=== PATIENT | female | born 1945 | race Hispanic/Latino ===

== ENCOUNTER 2018-07-17 10:03 | Observation (INO) | payer MEDICARE ==
[2018-07-17] MEDS ORDERED: Albuterol-Ipratrop 3 mg / 0.5 (3 ml) UD INH STA ×2 (10:59→11:00)
[2018-07-17] MEDS ORDERED: Albuterol-Ipratrop 3 mg / 0.5 (3 ml) UD ONE (11:20)
--- NOTE | 2018-07-17 11:20 | ED PDOC ---
HPI: Influenza Time Seen by Provider: 07/17/18 10:34 Chief Complaint: Cough, Cold, Congestion Past Medical History Vital Signs: Last Vital Signs Temp 98.2 F 07/17/18 10:07 Pulse 80 07/17/18 10:07 Resp 18 07/17/18 10:07 BP 159/68 H 07/17/18 10:07 Pulse Ox 96 07/17/18 10:07 - Medical History PMH: Asthma, HTN, Hypercholesterolemia - Surgical History Surgical History: Appendectomy - Allergies Allergies/Adverse Reactions: Allergies Allergy/AdvReac Type Severity Reaction Status Date / Time codeine Allergy ANAPHYLAXIS Verified 07/17/18 10:39 - ECG O2 Sat by Pulse Oximetry: 96 Disposition - Disposition
--- NOTE | 2018-07-17 11:23 | ED PDOC ---
HPI: SOB/CHF/COPD Time Seen by Provider: 07/17/18 10:34 Chief Complaint (Nursing): Cough, Cold, Congestion Chief Complaint (Provider): Cough, SOB History Per: Patient, Family (sisters and daughter at bedside) History/Exam Limitations: no limitations Onset/Duration Of Symptoms: Days (x1 week) Current Symptoms Are (Timing): Still Present Recently: Treated By A Physician (Dr Sanchez) Additional Complaint(s): Patient is a 73 year old female who presents to ED for evaluation of SOB and dry cough x1 week. Patient reports at onset last Monday (07/09/18), she saw Dr Sanchez and treated with a five day course of Levaquin, which she completed. Patient further reports that last week she was also seen by an urgent care and had a CXR done, which was reportedly unremarkable. Patient states that she has been using Robitussin, Promethazine syrup, and albuterol nebulizer with no relief of symptoms. She reports she saw Dr Sanchez again yesterday, who advised her to go to the ED however patient did not want to, therefore she was treated with outpatient Azithromycin, which patient started today. Patient notes that she also started taking steroids yesterday, her last dose was Prednisone 20mg PO this morning. Denies chest pain, fever, headache, dizziness, N/V/D, recent travel, sick contacts. Patient reports she was a former smoker and quit 20 years ago. PMD: Daniel Past Medical History Reviewed: Historical Data, Nursing Documentation, Vital Signs Vital Signs: Last Vital Signs Temp 98.2 F 07/17/18 10:07 Pulse 80 07/17/18 10:07 Resp 18 07/17/18 10:07 BP 159/68 H 07/17/18 10:07 Pulse Ox 96 07/17/18 10:07 - Medical History PMH: Asthma, COPD, HTN, Hypercholesterolemia, Hypothyroidism - Surgical History Surgical History: Appendectomy - Family History Family History: States: Unknown Family Hx - Social History Current smoker - smoking cessation education provided: No (Patient denies. ) Ex-Smoker (has not smoked in the last 12 months): Yes (quit 20 years ago per patient) Alcohol: None - Home Medications Home Medications: Ambulatory Orders Medication Instructions Recorded Albuterol Sulfate [Proair Hfa] 2 puff IH Q6 PRN 07/17/18 Azithromycin [Zithromax] 250 mg PO ASDIR 07/17/18 Levothyroxine [Synthroid] 100 mcg PO DAILY 07/17/18 RX: Albuterol 0.083% [Albuterol 3 ml IH Q4 PRN 07/17/18 0.083% Inhal Ping (2.5 mg/3 ml) UD] RX: Aspirin [Ecotrin] 81 mg PO DAILY 07/17/18 RX: Atenolol [Tenormin] 25 mg PO DAILY 07/17/18 RX: Losartan [Cozaar] 50 mg PO DAILY 07/17/18 RX: Promethazine [Phenergan Syrup] 5 ml PO Q6 PRN 07/17/18 RX: hydroCHLOROthiazide 25 mg PO DAILY 07/17/18 [Hydrodiuril] RX: predniSONE [predniSONE Tab] 20 mg PO DAILY 07/17/18 Simvastatin [Zocor] 40 mg PO HS 07/17/18 - Allergies Allergies/Adverse Reactions: Allergies Allergy/AdvReac Type Severity Reaction Status Date / Time codeine Allergy ANAPHYLAXIS Verified 07/17/18 10:39 Review of Systems ROS Statement: Except As Marked, All Systems Reviewed And Found Negative Constitutional: Negative for: Fever Cardiovascular: Negative for: Chest Pain, Palpitations Respiratory: Positive for: Cough, Shortness of Breath Gastrointestinal: Negative for: Nausea, Vomiting, Diarrhea Physical Exam - Reviewed Nursing Documentation Reviewed: Yes Vital Signs Reviewed: Yes - Physical Exam Appears: Positive for: Well, Non-toxic, No Acute Distress Head Exam: Positive for: ATRAUMATIC, NORMOCEPHALIC Skin: Positive for: Normal Color, Warm, Dry Eye Exam: Positive for: Normal appearance ENT: Positive for: Pharynx Is (clear, uvula midline), TM Is/Are (nonbulging, nonerythematous), Other (Mucus membranes moist. Airway patent, (-) stridor. ). Negative for: Sinus Pain/Drainage, Nasal Congestion, Pharyngeal Erythema, Tonsillar Exudate Neck: Positive for: Painless ROM, Supple Cardiovascular/Chest: Positive for: Regular Rate, Rhythm Respiratory: Positive for: Decreased Breath Sounds (bilaterally), Wheezing (scattered, faint wheezing to bilateral lower lung ulloa), Other (speaking in full sentences, respirations even and nonlabored. ). Negative for: Accessory Muscle Use, Respiratory Distress (or retractions) Extremity: Positive for: Normal ROM. Negative for: Deformity Neurologic/Psych: Positive for: Alert, Oriented (x3), Gait (steady in ED). Negative for: Aphasia, Facial Droop - Laboratory Results Result Diagrams: 07/17/18 11:50 07/17/18 11:50 - ECG O2 Sat by Pulse Oximetry: 96 (RA) Pulse Ox Interpretation: Normal Medical Decision Making Medical Decision Making: Clinical Impression: Cough, SOB Plan: IV access CBC CMP PT, PTT EKG Troponin BNP Duoneb x2 INH training project manager Consult Dr Sanchez [address] Sanchez, who states that the patient has been having this ongoing issue x1 month. Does not wish to repeat CXR as patient had one last week. Reports patient has a history of COPD and still smokes, which she denied to provider. Dr Sanchez states patient is to be admitted to observation on med/surg for 24 hours for COPD exacerbation. Recommends ABG. ABG ordered. EKG: NSR @ 68bpm (-) ST elevation, QTc [id number] Labs reviewed and grossly unremarkable. BNP and troponin WNL. Arrangements made for admission to obs on med/surg for COPD exacerbation. Disposition - Clinical Impression Clinical Impression: Cough in adult, COPD exacerbation, SOB (shortness of breath) - Patient ED Disposition Is Patient to be Admitted: Yes Discussed With .: Kenneth Sanchez Doctor Will See Patient In The: Hospital Counseled Patient/Family Regarding: Studies Performed, Diagnosis - Disposition Disposition Time: 12:15 Condition: STABLE - Pt Status Changed To: Hospital Disposition Of: Observation (med/surg) - POA Present On Arrival: None Results - Lab Results Lab Results: 07/17/18 07/17/18 07/17/18 11:55 11:50 11:50 WBC 7.8 RBC 4.68 Hgb 14.1 Hct 40.5 MCV 86.6 MCH 30.1 MCHC 34.7 RDW 12.8 Plt Count 313 MPV 8.3 Neut % (Auto) 89.2 H Lymph % (Auto) 8.0 L [place] % (Auto) 2.1 Eos % (Auto) 0.4 Baso % (Auto) 0.3 Neut # (Auto) 6.9 Lymph # (Auto) 0.6 L [place] # (Auto) 0.2 Eos # (Auto) 0.0 Baso # (Auto) 0.0 Neutrophils % (Manual) Pending Lymphocytes % (Manual) Pending Monocytes % (Manual) Pending Platelet Estimate Pending PT 11.8 INR 1.0 APTT 32.2 pCO2 37 pO2 160 H HCO3 27.5 ABG pH 7.47 H ABG Total CO2 28.0 ABG O2 Saturation 100.0 H ABG O2 Content 20.2 ABG Base Excess 3.3 H ABG Hemoglobin 14.6 ABG Carboxyhemoglobin 1.7 H POC ABG HHb (Measured) 0.0 ABG Methemoglobin 1.3 ABG O2 Capacity 20.2 Omar Test Yes A-a O2 Difference 136.0 Hgb O2 Saturation 97.1 FiO2 48.0 Sodium Potassium Chloride Carbon Dioxide Anion Gap BUN Creatinine Est GFR ( Amer) Est GFR (Non-Af Amer) Random Glucose Calcium Total Bilirubin AST ALT Alkaline Phosphatase Troponin I NT-Pro-B Natriuret Pep Total Protein Albumin Globulin Albumin/Globulin Ratio 07/17/18 11:50 WBC RBC Hgb Hct MCV MCH MCHC RDW Plt Count MPV Neut % (Auto) Lymph % (Auto) [place] % (Auto) Eos % (Auto) Baso % (Auto) Neut # (Auto) Lymph # (Auto) [place] # (Auto) Eos # (Auto) Baso # (Auto) Neutrophils % (Manual) Lymphocytes % (Manual) Monocytes % (Manual) Platelet Estimate PT INR APTT pCO2 pO2 HCO3 ABG pH ABG Total CO2 ABG O2 Saturation ABG O2 Content ABG Base Excess ABG Hemoglobin ABG Carboxyhemoglobin POC ABG HHb (Measured) ABG Methemoglobin ABG O2 Capacity Omar Test A-a O2 Difference Hgb O2 Saturation FiO2 Sodium 134 Potassium 3.6 Chloride 98 Carbon Dioxide 28 Anion Gap 12 BUN 12 Creatinine 0.6 L Est GFR ( Amer) > 60 Est GFR (Non-Af Amer) > 60 Random Glucose 139 H Calcium 9.2 Total Bilirubin 0.7 AST 22 ALT 23 Alkaline Phosphatase 69 Troponin I < 0.0120 NT-Pro-B Natriuret Pep 126 Total Protein 7.7 Albumin 3.9 Globulin 3.7 Albumin/Globulin Ratio 1.0
[2018-07-17 11:58] LABS: ABG ALLEN TEST YES; ARTERIAL BLOOD GAS HCO3 27.5 mmol/L (21-28); ARTERIAL BLOOD GAS HEMOGLOBIN 14.6 g/dL (11.7-17.4); ARTERIAL BLOOD GAS O2 CAPACITY 20.2 mL/dL (16-24); ARTERIAL BLOOD GAS O2 CONTENT 20.2 ML/dL (15-23); ARTERIAL BLOOD GAS PCO2 37 mm/Hg (35-45); ARTERIAL BLOOD GAS PH 7.47 (7.35-7.45); ARTERIAL BLOOD GAS PO2 160 mm/Hg (80-100)
[2018-07-17 12:03] LABS: BASO % 0.3 % (0.0-2.0); EOS % 0.4 % (0.0-4.0); HEMOGLOBIN 14.1 g/dL (12.0-16.0); LYMPH # 0.6 K/uL (1.0-4.3); MEAN CELL VOLUME 86.6 fl (81.0-99.0); MEAN CORPUSCULAR HEMOGLOBIN 30.1 pg (27.0-31.0); MEAN CORPUSCULAR HGB CONC 34.7 g/dL (33.0-37.0); MEAN PLATELET VOLUME 8.3 fl (7.2-11.7); MONO # 0.2 K/uL (0.0-0.8); MONO % 2.1 % (0.0-10.0); NEUT # 6.9 K/uL (1.8-7.0); NEUT % 89.2 % (50.0-75.0); PLATELET COUNT 313 K/uL (130-400); RBC 4.68 Mil/uL (3.80-5.20); RED CELL DISTRIBUTION WIDTH 12.8 % (11.5-14.5); WHITE BLOOD COUNT 7.8 K/uL (4.8-10.8)
[2018-07-17 12:13] LABS: PROTHROMBIN TIME 11.8 Seconds (9.8-13.1)
[2018-07-17 12:15] LABS: PARTIAL THROMBOPLASTIN TIME 32.2 Seconds (25.6-37.1)
[2018-07-17 12:19] LABS: ALBUMIN 3.9 g/dL (3.5-5.0); ALT/SGPT 23 U/L (9-52); AST/SGOT 22 U/L (14-36); BLOOD UREA NITROGEN 12 mg/dl (7-17); CALCIUM 9.2 mg/dL (8.4-10.2); GFR NON-AFRICAN AMERICAN > 60
[2018-07-17 12:31] LABS: B-TYPE NATRIURETIC PEPTIDE 126 pg/ml (0-900)
[2018-07-17 13:24] LABS: LYMPHOCYTE 5 % (20-50); MONOCYTE 1 % (0-10); NEUTROPHIL 94 % (42-75); PLATELET ESTIMATE NORMAL (NORMAL); TOTAL CELLS COUNTED 100
[2018-07-17] MEDS ORDERED: Promethazine 6.25 MG/5 ML CUP PO PRN (16:24)
[2018-07-17] MEDS ORDERED: Albuterol-Ipratrop 3 mg / 0.5 (3 ml) UD INH PRN (16:29)
[2018-07-17] MEDS ORDERED: methylPREDNISolone 40 MG in Sodium Chloride 0.9% 50 ML IVPB SCH (17:00)
[2018-07-17] MEDS: MethylPREDNISolone 40 mg Vial IVP SCH (17:42)
--- NOTE | 2018-07-17 18:58 | CARD ---
APPROVED REPORT Date of service: 07/17/2018 EKG Measurement Heart [id number] <Conclusion> Normal sinus rhythm ST & T wave abnormality, consider anterolateral ischemia Abnormal ECG
[2018-07-17] MEDS: Albuterol-Ipratrop 3 mg / 0.5 (3 ml) UD INH SCH (19:25)
[2018-07-18] MEDS: MethylPREDNISolone 40 mg Vial IVP SCH ×2 (00:06→08:54)
[2018-07-18] MEDS: Albuterol-Ipratrop 3 mg / 0.5 (3 ml) UD INH SCH ×2 (01:03→08:03)
[2018-07-18] MEDS ORDERED: Levothyroxine 100 MCG TAB PO SCH (09:00)
[2018-07-18 09:13] VITALS: BP 108/56; PULSE 82; RESP 20; TEMP 97.8; O2SAT 100
--- NOTE | 2018-07-18 10:00 | CP.PCM.HP ---
History of Present Illness - History of Present Illness History of Present Illness: 73 YR OLD FEMALE ADMITTED BECAUSE OF PROGRESSIVELY WORSENING SHORTNESS OF BREATH AND COUGH X SEVERAL WEEKS[WORSE ON THE DAY OF ADMISSION].OUT PATIENT TREATMENT FAILURE.SHE HAS BEEN TREATED WITH ANTIBIOTICS,STEROIDS AND ANTITUSSIVES TO NO AVAIL. HX OF CHRONIC CIGARETTE SMOKING. OUT PATIENT CXR-NEGATIVE HX OF HYPERTENSION AND THYROID DZ Present on Admission - Present on Admission Any Indicators Present on Admission: No Past Patient History - Past Medical History & Family History Past Medical History?: No - Past Social History Smoking Status: Never Smoked - CARDIAC Hx Cardiac Disorders: Yes - PULMONARY Hx Respiratory Disorders: Yes - NEUROLOGICAL Hx Neurological Disorder: No - HEENT Hx HEENT Problems: No - RENAL Hx Chronic Kidney Disease: No - ENDOCRINE/METABOLIC Hx Endocrine Disorders: No - HEMATOLOGICAL/ONCOLOGICAL Hx Blood Disorders: No - INTEGUMENTARY Hx Dermatological Problems: No - MUSCULOSKELETAL/RHEUMATOLOGICAL Hx Falls: No - GENITOURINARY/GYNECOLOGICAL Hx Genitourinary Disorders: No - PSYCHIATRIC Hx Psychophysiologic Disorder: No Hx Anxiety: No Hx Substance Use: No - SURGICAL HISTORY Hx Appendectomy: Yes - ANESTHESIA Hx Anesthesia: Yes Hx Anesthesia Reactions: No Meds Allergies/Adverse Reactions: Allergies Allergy/AdvReac Type Severity Reaction Status Date / Time codeine Allergy ANAPHYLAXIS Verified 07/17/18 10:39 Physical Exam - Constitutional Appears: Well, No Acute Distress Additional comments: CLINICALLY IMPROVED SINCE ADMISSION - Head Exam Head Exam: ATRAUMATIC, NORMAL INSPECTION, NORMOCEPHALIC - Eye Exam Eye Exam: EOMI, Normal appearance, PERRL Pupil Exam: NORMAL ACCOMODATION, PERRL - ENT Exam ENT Exam: Mucous Membranes Moist, Normal Exam - Neck Exam Neck exam: Positive for: Normal Inspection - Respiratory Exam Respiratory Exam: Clear to Auscultation Bilateral, NORMAL BREATHING PATTERN - Cardiovascular Exam Cardiovascular Exam: REGULAR RHYTHM - GI/Abdominal Exam GI & Abdominal Exam: Normal Bowel Sounds, Soft. absent: Tenderness - Rectal Exam Rectal Exam: NORMAL INSPECTION - Extremities Exam Extremities exam: Positive for: normal inspection - Back Exam Back exam: NORMAL INSPECTION - Neurological Exam Neurological exam: Alert, CN II-XII Intact, Normal Gait, Oriented x3, Reflexes Normal - Psychiatric Exam Psychiatric exam: Normal Affect, Normal Mood - Skin Skin Exam: Dry, Intact, Normal Color, Warm Results - Vital Signs Recent Vital Signs: Last Vital Signs Temp 97.8 F 07/18/18 08:00 Pulse 82 07/18/18 08:00 Resp 20 07/18/18 08:00 BP 108/56 L 07/18/18 08:00 Pulse Ox 100 07/18/18 08:00 - Labs Result Diagrams: 07/17/18 11:50 07/17/18 11:50 Labs: Laboratory Results - last 24 hr 07/17/18 07/17/18 07/17/18 11:50 11:50 11:50 WBC 7.8 RBC 4.68 Hgb 14.1 Hct 40.5 MCV 86.6 MCH 30.1 MCHC 34.7 RDW 12.8 Plt Count 313 MPV 8.3 Neut % (Auto) 89.2 H Lymph % (Auto) 8.0 L [place] % (Auto) 2.1 Eos % (Auto) 0.4 Baso % (Auto) 0.3 Neut # (Auto) 6.9 Lymph # (Auto) 0.6 L [place] # (Auto) 0.2 Eos # (Auto) 0.0 Baso # (Auto) 0.0 Neutrophils % (Manual) 94 H Lymphocytes % (Manual) 5 L Monocytes % (Manual) 1 Platelet Estimate Normal RBC Morphology Normal PT 11.8 INR 1.0 APTT 32.2 pCO2 pO2 HCO3 ABG pH ABG Total CO2 ABG O2 Saturation ABG O2 Content ABG Base Excess ABG Hemoglobin ABG Carboxyhemoglobin POC ABG HHb (Measured) ABG Methemoglobin ABG O2 Capacity Omar Test A-a O2 Difference Hgb O2 Saturation FiO2 Sodium 134 Potassium 3.6 Chloride 98 Carbon Dioxide 28 Anion Gap 12 BUN 12 Creatinine 0.6 L Est GFR ( Amer) > 60 Est GFR (Non-Af Amer) > 60 Random Glucose 139 H Calcium 9.2 Total Bilirubin 0.7 AST 22 ALT 23 Alkaline Phosphatase 69 Troponin I < 0.0120 NT-Pro-B Natriuret Pep 126 Total Protein 7.7 Albumin 3.9 Globulin 3.7 Albumin/Globulin Ratio 1.0 07/17/18 11:55 WBC RBC Hgb Hct MCV MCH MCHC RDW Plt Count MPV Neut % (Auto) Lymph % (Auto) [place] % (Auto) Eos % (Auto) Baso % (Auto) Neut # (Auto) Lymph # (Auto) [place] # (Auto) Eos # (Auto) Baso # (Auto) Neutrophils % (Manual) Lymphocytes % (Manual) Monocytes % (Manual) Platelet Estimate RBC Morphology PT INR APTT pCO2 37 pO2 160 H HCO3 27.5 ABG pH 7.47 H ABG Total CO2 28.0 ABG O2 Saturation 100.0 H ABG O2 Content 20.2 ABG Base Excess 3.3 H ABG Hemoglobin 14.6 ABG Carboxyhemoglobin 1.7 H POC ABG HHb (Measured) 0.0 ABG Methemoglobin 1.3 ABG O2 Capacity 20.2 Omar Test Yes A-a O2 Difference 136.0 Hgb O2 Saturation 97.1 FiO2 48.0 Sodium Potassium Chloride Carbon Dioxide Anion Gap BUN Creatinine Est GFR ( Amer) Est GFR (Non-Af Amer) Random Glucose Calcium Total Bilirubin AST ALT Alkaline Phosphatase Troponin I NT-Pro-B Natriuret Pep Total Protein Albumin Globulin Albumin/Globulin Ratio Assessment & Plan - Assessment and Plan (Free Text) Assessment: COPD EXACERBATION HYPOTHYROIDISM HYPERTENSION WITH EKG CHANGES MUCUS PLUGGING OF AIRWAYS Plan: DISCHARGE TODAY ADVISED SMOKING CAESATION 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
--- NOTE | 2018-07-18 10:08 | CP.PCM.DIS ---
Provider - Provider Date of Admission: 07/17/18 12:14 Attending physician: Kenneth Sanchez MD Time Spent in preparation of Discharge (in minutes): 30 Diagnosis - Discharge Diagnosis (1) Hypothyroid Status: Acute (2) Hypertension Status: Acute (3) Mucus plugging of bronchi Status: Acute (4) Cigarette smoker Status: Acute (5) COPD exacerbation Status: Acute (6) SOB (shortness of breath) Status: Acute Hospital Course - Lab Results Lab Results: Most Recent Lab Values WBC 7.8 K/uL (4.8-10.8) 07/17/18 11:50 RBC 4.68 Mil/uL (3.80-5.20) 07/17/18 11:50 Hgb 14.1 g/dL (12.0-16.0) 07/17/18 11:50 Hct 40.5 % (34.0-47.0) 07/17/18 11:50 MCV 86.6 fl (81.0-99.0) 07/17/18 11:50 MCH 30.1 pg (27.0-31.0) 07/17/18 11:50 MCHC 34.7 g/dL (33.0-37.0) 07/17/18 11:50 RDW 12.8 % (11.5-14.5) 07/17/18 11:50 Plt Count 313 K/uL (130-400) 07/17/18 11:50 MPV 8.3 fl (7.2-11.7) 07/17/18 11:50 Neut % (Auto) 89.2 % (50.0-75.0) H 07/17/18 11:50 Lymph % (Auto) 8.0 % (20.0-40.0) L 07/17/18 11:50 [place] % (Auto) 2.1 % (0.0-10.0) 07/17/18 11:50 Eos % (Auto) 0.4 % (0.0-4.0) 07/17/18 11:50 Baso % (Auto) 0.3 % (0.0-2.0) 07/17/18 11:50 Neut # (Auto) 6.9 K/uL (1.8-7.0) 07/17/18 11:50 Lymph # (Auto) 0.6 K/uL (1.0-4.3) L 07/17/18 11:50 [place] # (Auto) 0.2 K/uL (0.0-0.8) 07/17/18 11:50 Eos # (Auto) 0.0 K/uL (0.0-0.7) 07/17/18 11:50 Baso # (Auto) 0.0 K/uL (0.0-0.2) 07/17/18 11:50 Neutrophils % (Manual) 94 % (42-75) H 07/17/18 11:50 Lymphocytes % (Manual) 5 % (20-50) L 07/17/18 11:50 Monocytes % (Manual) 1 % (0-10) 07/17/18 11:50 Platelet Estimate Normal (NORMAL) 07/17/18 11:50 RBC Morphology Normal (NORMAL) 07/17/18 11:50 PT 11.8 Seconds (9.8-13.1) 07/17/18 11:50 INR 1.0 07/17/18 11:50 APTT 32.2 Seconds (25.6-37.1) 07/17/18 11:50 pCO2 37 mm/Hg (35-45) 07/17/18 11:55 pO2 160 mm/Hg (80-100) H 07/17/18 11:55 HCO3 27.5 mmol/L (21-28) 07/17/18 11:55 ABG pH 7.47 (7.35-7.45) H 07/17/18 11:55 ABG Total CO2 28.0 mmol/L (22-28) 07/17/18 11:55 ABG O2 Saturation 100.0 % (95-98) H 07/17/18 11:55 ABG O2 Content 20.2 ML/dL (15-23) 07/17/18 11:55 ABG Base Excess 3.3 mmol/L (-2.0-3.0) H 07/17/18 11:55 ABG Hemoglobin 14.6 g/dL (11.7-17.4) 07/17/18 11:55 ABG Carboxyhemoglobin 1.7 % (0.5-1.5) H 07/17/18 11:55 POC ABG HHb (Measured) 0.0 % (0.0-5.0) 07/17/18 11:55 ABG Methemoglobin 1.3 % (0.0-3.0) 07/17/18 11:55 ABG O2 Capacity 20.2 mL/dL (16-24) 07/17/18 11:55 Omar Test Yes 07/17/18 11:55 A-a O2 Difference 136.0 mm/Hg 07/17/18 11:55 Hgb O2 Saturation 97.1 % (95.0-98.0) 07/17/18 11:55 FiO2 48.0 % 07/17/18 11:55 Sodium 134 mmol/l (132-148) 07/17/18 11:50 Potassium 3.6 MMOL/L (3.6-5.0) 07/17/18 11:50 Chloride 98 mmol/L (98-107) 07/17/18 11:50 Carbon Dioxide 28 mmol/L (22-30) 07/17/18 11:50 Anion Gap 12 (10-20) 07/17/18 11:50 BUN 12 mg/dl (7-17) 07/17/18 11:50 Creatinine 0.6 mg/dl (0.7-1.2) L 07/17/18 11:50 Est GFR ( Amer) > 60 07/17/18 11:50 Est GFR (Non-Af Amer) > 60 07/17/18 11:50 Random Glucose 139 mg/dL (65-105) H 07/17/18 11:50 Calcium 9.2 mg/dL (8.4-10.2) 07/17/18 11:50 Total Bilirubin 0.7 mg/dl (0.2-1.3) 07/17/18 11:50 AST 22 U/L (14-36) 07/17/18 11:50 ALT 23 U/L (9-52) 07/17/18 11:50 Alkaline Phosphatase 69 U/L (38-126) 07/17/18 11:50 Troponin I < 0.0120 ng/mL (0.00-0.120) 07/17/18 11:50 NT-Pro-B Natriuret Pep 126 pg/ml (0-900) 07/17/18 11:50 Total Protein 7.7 G/DL (6.3-8.2) 07/17/18 11:50 Albumin 3.9 g/dL (3.5-5.0) 07/17/18 11:50 Globulin 3.7 gm/dL (2.2-3.9) 07/17/18 11:50 Albumin/Globulin Ratio 1.0 (1.0-2.1) 07/17/18 11:50 - Hospital Course Hospital Course: CLINICALLY IMPROVED WITH RX Discharge Exam - Head Exam Head Exam: ATRAUMATIC, NORMAL INSPECTION, NORMOCEPHALIC - Eye Exam Eye Exam: EOMI, Normal appearance, PERRL Pupil Exam: NORMAL ACCOMODATION, PERRL - GI/Abdominal Exam GI & Abdominal Exam: Normal Bowel Sounds - Rectal Exam Rectal Exam: NORMAL INSPECTION - Neurological Exam Neurological exam: Alert, CN II-XII Intact, Normal Gait, Oriented x3, Reflexes Normal - Psychiatric Exam Psychiatric exam: Normal Affect, Normal Mood - Skin Skin Exam: Dry, Intact, Normal Color, Warm Discharge Plan - Follow Up Plan Condition: STABLE Disposition: HOME/ ROUTINE Patient education suggested?: Yes Instructions: Exacerbation of COPD (DC) Referrals: Kenneth Sanchez MD [Family Provider] -
== END 2018-07-18 14:23 | disposition home or self-care (01) ==
LOC: H.ER 10:03 → H.ERHOLD 12:14 → H.MEDSURG1 13:41
PROVIDERS: ADMIT Internal Medicine Pulmonary Disease; ATTEND Internal Medicine Pulmonary Disease
DX: J44.1 Chronic obstructive pulmonary disease with (acute) exacerbation (principal); T17.590A Other foreign object in bronchus causing asphyxiation, initial encounter; E03.9 Hypothyroidism, unspecified; I10 Essential (primary) hypertension; E78.00 Pure hypercholesterolemia, unspecified; F17.210 Nicotine dependence, cigarettes, uncomplicated; Z88.6 Allergy status to analgesic agent
CPT/HCPCS: 80053; 82803; 83880; 84484; 85025; 85610; 85730; 93005; 94640; 99284; G0378; J0696; J2920